=== PATIENT | male | born 1975 | race African-American/Black ===

== ENCOUNTER 2017-06-05 14:16 | Emergency (ER) | payer MEDICAID ==
[~2017-06-05] VITALS: Ht 167.6 cm; Wt 63.5 kg
--- NOTE | 2017-06-05 14:16 | NUR ---
Patient is AOX4, brought in by TRA with complains of severe abdominal pains, started about 30 minutes prior to arrival to ER. Per patient, he said that he drank 2 bottles of beer before the abdominal pains started.
--- NOTE | 2017-06-05 14:22 | NUR ---
After noticing a fresh puncture site at left antecubital area, patient admits to coming from another hospital but can not recall the hospital's name at this time 2/2 abdominal pains.
[2017-06-05] MEDS ORDERED: MAG HYDROX/AL HYDROX/SIMETH 30 ML LIQUID UDC PO ONE (14:30)
[2017-06-05] MEDS ORDERED: IV NORMAL SALINE 1000 ML BAG IV ONE (14:30)
[2017-06-05] MEDS ORDERED: HALOPERIDOL LACTATE 5 MG/1 ML VIAL IV ONE (14:45)
--- NOTE | 2017-06-05 14:53 | NUR ---
PATIENT C/O ITCHINESS TO BOTH ARMS, NO RASHES SEEN, LUNGS CLEAR CTA BILATERALLY, MD NOTIFIED
[2017-06-05] MEDS ORDERED: HALOPERIDOL LACTATE 5 MG/1 ML VIAL ONE (14:58)
[2017-06-05] MEDS ORDERED: MAG HYDROX/AL HYDROX/SIMETH 30 ML LIQUID UDC ONE (14:58)
[2017-06-05] MEDS ORDERED: diphenhydrAMINE 25 MG CAP PO ONE ×2 (15:00→15:11)
[2017-06-05 15:01] LABS: BASOPHILS % (AUTO) 0.3 % (0.0-2.0); HEMATOCRIT 39.2 % (40-50); HEMOGLOBIN 12.4 G/DL (14.0-18.0); LYMPHOCYTES # (AUTO) 1.1 K/UL (0.8-4.8); LYMPHOCYTES % (AUTO) 28.1 % (20.5-51.5); MEAN CORPUSCULAR HEMOGLOBIN 24.5 UUG (27.0-31.0); MEAN CORPUSCULAR HGB CONC 32 g/dL (32.0-37.0); MEAN CORPUSCULAR VOLUME 77.5 FL (82.0-92.0); MONOCYTES # (AUTO) 0.4 K/UL (0.1-1.30); MONOCYTES % (AUTO) 9.1 % (0.0-11.0); NEUTROPHILS # (AUTO) 2.6 K/UL (1.8-8.9); NEUTROPHILS % (AUTO) 61.5 % (38.5-71.5); PLATELET COUNT (AUTO) 205 K/UL (150-450); RED BLOOD CELL COUNT(AUTO) 5.05 MIL/UL (4.7-6.1); WHITE BLOOD COUNT (AUTO) 4.1 K/UL (4.0-11.2)
--- NOTE | 2017-06-05 15:01 | NUR ---
Patient is resting comfortably on gurney with eyes closed, denies itchiness at this time, no facial grimacing or abdominal guarding seen, pending results and disposition
[2017-06-05 15:04] LABS: CREATININE 0.9 mg/dL (0.6-1.3); POTASSIUM 3.5 mmol/L (3.5-5.1)
[2017-06-05 15:17] LABS: BILIRUBIN,DIRECT 0.1 mg/dL (0.0-0.2); BILIRUBIN,TOTAL 0.5 mg/dL (0.2-1.0); TOTAL PROTEIN, SERUM 7.4 g/dL (6.4-8.2)
[2017-06-05] MEDS ORDERED: LEVETIRACETAM 750 MG (15:40)
[2017-06-05] MEDS ORDERED: LEVE750T4 PO (16:06)
[2017-06-05] MEDS ORDERED: IV NS 1000 ML 1,000 ML IV ONE (16:15)
--- NOTE | 2017-06-05 16:46 | NUR ---
Patient is wide awake and wants something to eat, MD notified. Patient is not NPO now per MD. Patient denies abdominal pains at this time.
--- NOTE | 2017-06-05 17:06 | NUR ---
Patient is eating dinner tray with good appetite and denies any abdominal discomfort at this time.
--- NOTE | 2017-06-05 18:10 | NUR ---
IV removed. Catheter intact and site benign. Pressure and 4x4 gauze applied to site. No bleeding noted. Patient discharged to home in stable conditon. Written and verbal after care instructions given to patient. Patient verbalizes understanding of instructions.
--- NOTE | 2017-06-05 18:12 | NUR ---
Patient is AOx4, pt refused to sign discharge papers. Patient ambulated with brisk steady gait.
== END 2017-06-05 18:16 | disposition home or self-care (01) ==
LOC: ER 14:18
DX: G89.29 Other chronic pain (principal); R10.9 Unspecified abdominal pain; Z90.49 Acquired absence of other specified parts of digestive tract; Z88.6 Allergy status to analgesic agent
CPT/HCPCS: 36415; 74020; 83605; 83615; 83690; 85025; A4663; J1630; J7030; Q0163

== ENCOUNTER 2017-07-17 15:09 | Emergency (ER) | payer MEDICAID ==
[~2017-07-17] VITALS: Ht 175.3 cm; Wt 79.4 kg
[~2017-07-17 15:09] MED LIST: LEVE750T4 PO; LEVETIRACETAM 750 MG
[2017-07-17] MEDS ORDERED: HYDROCO/APAP TAB 5-325MG (15:27)
[2017-07-17] MEDS ORDERED: diphenhydrAMINE 50 MG/1 ML VIAL IV ONE (15:45)
[2017-07-17 15:52] LABS: BASOPHILS # (AUTO) 0.1 K/uL (0.0-8.0); BASOPHILS % (AUTO) 1.6 % (0.0-2.0); EOSINOPHILS # (AUTO) 0.1 K/uL (0.0-0.7); EOSINOPHILS % (AUTO) 1.5 % (0.0-7.0); HEMATOCRIT 37.9 % (40-50); HEMOGLOBIN 11.9 G/DL (14.0-18.0); LYMPHOCYTES # (AUTO) 1.4 K/UL (0.8-4.8); MEAN CORPUSCULAR HEMOGLOBIN 24.6 UUG (27.0-31.0); MEAN CORPUSCULAR HGB CONC 32 g/dL (32.0-37.0); MONOCYTES # (AUTO) 0.4 K/UL (0.1-1.30); MONOCYTES % (AUTO) 7.2 % (0.0-11.0); NEUTROPHILS # (AUTO) 3.3 K/UL (1.8-8.9); NEUTROPHILS % (AUTO) 62.7 % (38.5-71.5); PLATELET COUNT (AUTO) 234 K/UL (150-450); RED BLOOD CELL COUNT(AUTO) 4.86 MIL/UL (4.7-6.1); WHITE BLOOD COUNT (AUTO) 5.3 K/UL (4.0-11.2)
[2017-07-17 16:01] LABS: POTASSIUM 3.6 mmol/L (3.5-5.1)
[2017-07-17] MEDS ORDERED: diphenhydrAMINE 50 MG/1 ML VIAL ONE (16:03)
[2017-07-17 16:07] LABS: BILIRUBIN,DIRECT 0.1 mg/dL (0.0-0.2); BILIRUBIN,TOTAL 0.2 mg/dL (0.2-1.0); TOTAL PROTEIN, SERUM 7.2 g/dL (6.4-8.2)
[2017-07-17 16:08] LABS: *AMPHETAMINE, URINE NEGATIVE (NEGATIVE); *BARBITURATE, URINE POSITIVE (NEGATIVE); *CANNABINOID, URINE NEGATIVE (NEGATIVE); *COCCAINE, URINE NEGATIVE (NEGATIVE); *OPIATE, URINE NEGATIVE (NEGATIVE); *PHENCYCLIDINE SCREEN,URINE NEGATIVE (NEGATIVE)
[2017-07-17 16:14] LABS: *BILIRUBIN,URIN NEGATIVE (NEGATIVE); *BLOOD, URINE NEGATIVE (NEGATIVE); *CLARITY,URINE CLEAR (CLEAR); *COLOR,URINE LIGHT YELLOW (YELLOW); *KETONES,URINE NEGATIVE (NEGATIVE); *PROTEIN,URINE NEGATIVE (NEGATIVE); *UROBILINOGEN,URINE 0.2 E.U./dl (NORMAL); LEUKOCYTE ESTERASE ,URINE NEGATIVE (NEGATIVE); NITRITE, URINE NEGATIVE (NEGATIVE); UGLUCOSE NEGATIVE (NEGATIVE)
[2017-07-17 16:27] LABS: BACTERIA,URINE NONE SEEN /HPF (NONE SEEN); RBC,URINE 0-3 /HPF (0-3); SQUAMOUS EPITHELIAL CELL,UR NONE SEEN /HPF (NONE SEEN); WBC,URINE 0-3 /HPF (0-3)
[2017-07-17] MEDS ORDERED: NORMAL SALINE FLUSH 10 ML DISP.SYRIN ONE (16:53)
[2017-07-17] MEDS ORDERED: IV NORMAL SALINE 250 ML IV ONE (16:53)
[2017-07-17] MEDS ORDERED: IOHEXOL 300MG/ML 100 ML INFUS..BTL ONE (16:53)
--- NOTE | 2017-07-17 17:19 | NUR ---
pt back from ct scan. pt responding only to painful dtimuli. pt non verbal
--- NOTE | 2017-07-17 18:00 | NUR ---
pt awake now, walking in steady gait.
--- NOTE | 2017-07-17 18:24 | NUR ---
Patient discharged to home in stable conditon. Written and verbal after care instructions given. Patient verbalizes understanding of instructions.pt waks in steady gait, denies any pain or nausea t this time. pt not driving.
[2017-07-17 18:28] VITALS: BP 117/67
[2017-07-17] MEDS ORDERED: LEVETIRACETAM 250 MG TABLET PO ONE (18:30)
[2017-07-17] MEDS ORDERED: LEVETIRACETAM 250 MG TABLET ONE (18:37)
== END 2017-07-17 18:30 | disposition home or self-care (01) ==
LOC: ER 15:10
DX: M54.2 Cervicalgia (principal); R07.9 Chest pain, unspecified; F10.129 Alcohol abuse with intoxication, unspecified; F17.210 Nicotine dependence, cigarettes, uncomplicated; V89.2XXA Person injured in unspecified motor-vehicle accident, traffic, initial encounter; Y93.89 Activity, other specified; Y92.410 Unspecified street and highway as the place of occurrence of the external cause; Y99.9 Unspecified external cause status
CPT/HCPCS: 36415; 70450; 71010; 71260; 72125; 74177; 80048; 80076; 80307; 81001; 84484; 85025; 85379; 85730; 86850; 86900; 86901; 93005; 96374; 99285; A4663; G0480; J1200; J3490; J7050; Q9967; 70030-TC

== ENCOUNTER 2017-07-22 12:13 | Emergency (ER) | payer MEDICAID ==
[~2017-07-22] VITALS: Ht 167.6 cm; Wt 63.5 kg
[~2017-07-22 12:13] MED LIST changes: +HYDROCO/APAP TAB 5-325MG
--- NOTE | 2017-07-22 12:40 | NUR ---
PT IS IN ROOM #2A. DR MARVIN EVALUATED THE PT.
--- NOTE | 2017-07-22 13:07 | NUR ---
PT REFUSED X-RAY. DR MARVIN NOTIFIED. PT ELOPED. DR MARVIN WAS NOTIFIED.
== END 2017-07-22 13:10 | disposition left against medical advice (07) ==
LOC: ER 12:21
DX: M54.9 Dorsalgia, unspecified (principal); M79.605 Pain in left leg; Z59.0 Homelessness; F17.200 Nicotine dependence, unspecified, uncomplicated; Z88.6 Allergy status to analgesic agent; Z90.49 Acquired absence of other specified parts of digestive tract; V49.9XXA Car occupant (driver) (passenger) injured in unspecified traffic accident, initial encounter; Y93.89 Activity, other specified; Y92.413 State road as the place of occurrence of the external cause; Y99.8 Other external cause status
CPT/HCPCS: 72100; 99284; A4663

== ENCOUNTER 2017-08-08 18:48 | Emergency (ER) | payer MEDICAID ==
--- NOTE | 2017-08-08 19:40 | NUR ---
WENT TO WAITING ROOM ON 2 SEPARATE OCCASION TO ATTEMPT TO TRAIGE PATIENT. PATIENT REFUSING TO BE TRAIGE AT THIS TIME STATING "LET ME SLEEP." PATIENT WITH NO DISTRESS NOTED
--- NOTE | 2017-08-08 19:50 | NUR ---
HOSPITAL SECRUITY INTO CHECK PATIENT. PATIENT WOKE UP WALKING AROUND WAITING ROOM SPEAKING ON CELL PHONE WITH . PATIENT WITH NO DISTRESS NOTED
--- NOTE | 2017-08-08 20:04 | NUR ---
PATIENT WALKED OUT OF ER WITH NO DISTRESS NOTED
== END 2017-08-08 20:06 | disposition left against medical advice (07) ==
LOC: ER 18:49
DX: Z53.21 Procedure and treatment not carried out due to patient leaving prior to being seen by health care provider (principal)

== ENCOUNTER 2017-08-21 03:39 | Emergency (ER) | payer MEDICAID ==
[~2017-08-21] VITALS: Ht 167.6 cm; Wt 65.8 kg
[2017-08-21] MEDS ORDERED: ACETAMINOPHEN ES 500 MG TABLET PO ONE (04:30)
--- NOTE | 2017-08-21 04:31 | NUR ---
Patient was asked to provide a urine specimen at which time he stated "I don't want nothing to do with you all" and left the hospital. Patient eloped from facility. ER physician notified.
[2017-08-21] MEDS ORDERED: ACETAMINOPHEN ES 500 MG TABLET ONE (04:42)
== END 2017-08-21 04:33 | disposition left against medical advice (07) ==
LOC: ER 03:40
DX: R10.9 Unspecified abdominal pain (principal); F10.129 Alcohol abuse with intoxication, unspecified; Z59.0 Homelessness; Z76.5 Malingerer [conscious simulation]; Z88.6 Allergy status to analgesic agent; Z90.49 Acquired absence of other specified parts of digestive tract; F17.200 Nicotine dependence, unspecified, uncomplicated
CPT/HCPCS: 99281; A4663

== ENCOUNTER 2017-09-12 18:03 | Emergency (ER) | payer MEDICAID ==
[~2017-09-12] VITALS: Ht 162.6 cm; Wt 65.8 kg
--- NOTE | 2017-09-12 20:36 | NUR ---
PATIENT AWAKE, AL;ERT AND ORIENTED AT THIS TIME. DR. NEGRETE AT BEDSIDE FOR MSE.
--- NOTE | 2017-09-12 21:00 | NUR ---
PATIENT WALKED OUT OF ER. STATES "I FEEL FINE". PATIENT IS ALERT AND ORIENTED, LEFT WITH STEADY GAIT
--- NOTE | 2017-09-12 21:01 | NUR ---
PATIENT DID NOT WANT TO WAIT FOR DC INSTRUCTIONS.
== END 2017-09-12 21:01 | disposition left against medical advice (07) ==
LOC: ER 18:04
DX: M79.604 Pain in right leg (principal); Z59.0 Homelessness; Z88.6 Allergy status to analgesic agent; Z90.49 Acquired absence of other specified parts of digestive tract
CPT/HCPCS: A4663

== ENCOUNTER 2017-09-27 21:43 | Emergency (ER) | payer MEDICAID ==
[~2017-09-27] VITALS: Ht 167.6 cm; Wt 59.0 kg
--- NOTE | 2017-09-28 04:03 | NUR ---
Pt was in hospital for sz.s about 1 1/2 weeks ago, apparently had an IO drilled into right tibia, c/o severe 8/10 pain, pain shoots to foot and up through right arm. Pt denies CP, SOB, dizziness, n/v, no other complaints, minor distress noted. Bed padded for safety.
--- NOTE | 2017-09-28 05:03 | NUR ---
Gave pt d/c instructions, verbalized understanding.
== END 2017-09-28 05:05 | disposition home or self-care (01) ==
LOC: ER 21:43
DX: M25.561 Pain in right knee (principal); Z59.0 Homelessness; R56.9 Unspecified convulsions; Z88.6 Allergy status to analgesic agent; F17.200 Nicotine dependence, unspecified, uncomplicated; Z90.49 Acquired absence of other specified parts of digestive tract
CPT/HCPCS: 73564; 99284; A4663

== ENCOUNTER 2017-11-01 00:23 | Emergency (ER) | payer MEDICAID ==
[~2017-11-01] VITALS: Ht 165.1 cm; Wt 58.3 kg
--- NOTE | 2017-11-01 00:30 | NUR ---
Pt found down in the hallway by hospital personnel, brought into ER in Wheel chair. Pt c/o SOB and left sided sharp CP. Pt denies dizziness, n/v, no other complaints, minor distress noted. Pt placed on monitor, EKG -- given to .
[2017-11-01 00:55] LABS: BASOPHILS # (AUTO) 0.1 K/uL (0.0-8.0); BASOPHILS % (AUTO) 2.5 % (0.0-2.0); EOSINOPHILS % (AUTO) 0.6 % (0.0-7.0); HEMATOCRIT 37.2 % (36.7-47.1); HEMOGLOBIN 11.8 g/dL (12.5-16.3); LYMPHOCYTES # (AUTO) 1.6 K/uL (20.0-40.0); LYMPHOCYTES % (AUTO) 37.5 % (20.5-51.5); MEAN CORPUSCULAR HEMOGLOBIN 23.2 uug (23.8-33.4); MEAN CORPUSCULAR HGB CONC 32 g/dL (32.5-36.3); MEAN CORPUSCULAR VOLUME 72.7 fL (73.0-96.2); MONOCYTES # (AUTO) 0.3 K/uL (2.0-10.0); MONOCYTES % (AUTO) 6.5 % (0.0-11.0); NEUTROPHILS # (AUTO) 2.2 K/uL (1.8-8.9); NEUTROPHILS % (AUTO) 52.9 % (38.5-71.5); PLATELET COUNT (AUTO) 329 K/uL (152-348); RED BLOOD CELL COUNT(AUTO) 5.11 MIL/uL (4.06-5.63); WHITE BLOOD COUNT (AUTO) 4.2 K/uL (3.6-10.2)
[2017-11-01] MEDS: ONDANSETRON 4 MG/2 ML VIAL IV ONE (01:04)
[2017-11-01] MEDS: ENOXAPARIN SODIUM 60 MG/0.6 ML DISP.SYRIN SQ ONE (01:12)
[2017-11-01 01:13] LABS: ALANINE AMINOTRANSFERASE 32 U/L (16-63); ALKALINE PHOSPHATASE 54 U/L (50-136); ASPARTATE AMINOTRANSFERASE 38 U/L (15-37); BILIRUBIN,DIRECT < 0.1 mg/dL (0.0-0.2); BILIRUBIN,TOTAL 0.3 mg/dL (0.2-1.0); CARBON DIOXIDE 25 mmol/L (21-32); CHLORIDE 104 mmol/L (98-107); CREATININE 0.9 mg/dL (0.6-1.3); GLUCOSE 102 mg/dL (74-106); POTASSIUM 4.7 mmol/L (3.5-5.1); TOTAL PROTEIN, SERUM 8.8 g/dL (6.4-8.2); UREA NITROGEN, BLOOD 8 mg/dL (7-18)
[2017-11-01] MEDS ORDERED: ONDANSETRON 4 MG/2 ML VIAL ONE (01:14)
[2017-11-01] MEDS ORDERED: IOHEXOL 350 100 ML INFUS..BTL ONE ×2 (01:14→02:13)
[2017-11-01] MEDS ORDERED: IV NORMAL SALINE 250 ML IV ONE (01:14)
[2017-11-01] MEDS ORDERED: ENOXAPARIN SODIUM 60 MG/0.6 ML DISP.SYRIN SQ ONE (01:22)
[2017-11-01] MEDS: diphenhydrAMINE 25 MG CAP PO ONE (01:30)
[2017-11-01] MEDS: IV NORMAL SALINE 1000 ML BAG IV ONE ×2 (01:33→03:50)
[2017-11-01] MEDS ORDERED: diphenhydrAMINE 25 MG CAP PO ONE (01:40)
[2017-11-01] MEDS: diphenhydrAMINE 50 MG/1 ML VIAL IV ONE (01:47)
[2017-11-01] MEDS: LORAZEPAM 2 MG/1 ML VIAL IV ONE (01:47)
--- NOTE | 2017-11-01 01:48 | NUR ---
Pt c/o severe itching after contrast injection in CT. notified
[2017-11-01] MEDS ORDERED: diphenhydrAMINE 50 MG/1 ML VIAL ONE (02:00)
[2017-11-01] MEDS ORDERED: LORAZEPAM 2 MG/1 ML VIAL ONE (02:01)
--- NOTE | 2017-11-01 02:45 | NUR ---
Primary IV infiltrated during 2nd CT attempt, IV removed intact, bandaged, warm pack applied to site.
[2017-11-01] MEDS: PANTOPRAZOLE SODIUM 40 MG VIAL IV ONE (04:01)
[2017-11-01] MEDS ORDERED: PANTOPRAZOLE SODIUM 40 MG VIAL ONE (04:17)
--- NOTE | 2017-11-01 04:35 | NUR ---
Gave pt sandwich. No complaints, no distress noted.
--- NOTE | 2017-11-01 05:35 | NUR ---
Pt resting in bed w/eyes closed, no complaints, no distress noted.
--- NOTE | 2017-11-01 06:25 | NUR ---
Pt does not yet have a steady gait. informed.
--- NOTE | 2017-11-01 07:42 | NUR ---
PATIENT IS AWAKE, ALERT, ORIENTED X4 IN NO DISTRESS. HE WALKED TO THE BATHROOM IN STEADY GAIT AND URINATED. DENIES PAIN, DENIES DIZZINESS. STATES HE WANTS TO GO HOME. DENIES BEING HOMELESS. STATES HE WILL TAKE THE BUS. STATES HE UNDERSTANDS THAT HE SHOULD NOT DRIVE WHEN INTOXICATED. DC, RX AND FOLLOW UP INSTRUCTIONS GIVEN AND EXPLAINED TO PATIENT WHO STATES HE UNDERSTAND ALL INSTRUCTIONS. STATES HE HAS A AND SHE IS WAITING FOR HIM. HE HAD A WALLET, KEYS AND SEVERAL PRESCRIPTION BOTTLES WITH HIM WHEN HE LEFT.
[2017-11-01 07:46] VITALS: BP 119/74
== END 2017-11-01 07:47 | disposition home or self-care (01) ==
LOC: ER 00:23
DX: F10.129 Alcohol abuse with intoxication, unspecified (principal); G40.909 Epilepsy, unspecified, not intractable, without status epilepticus; Z59.0 Homelessness; Z88.6 Allergy status to analgesic agent; F17.200 Nicotine dependence, unspecified, uncomplicated
CPT/HCPCS: 36415; 70030-TC; 71045; 71275; 85025; 85730; 86850; 86900; 86901; 93005; A4663; C9113; G0480; J1200; J1650; J2060; J2405; J7030; J7050; Q0163; Q9967

== ENCOUNTER 2018-03-17 20:27 | Emergency (ER) | payer MEDICAID ==
[~2018-03-17] VITALS: Ht 165.1 cm; Wt 58.1 kg
--- NOTE | 2018-03-17 20:35 | NUR ---
DR YON SANCHEZ MD AT BEDSIDE FOR MSE.
[2018-03-17] MEDS ORDERED: PANTOPRAZOLE SODIUM 40 MG VIAL IV ONE (20:45)
[2018-03-17] MEDS ORDERED: IV NORMAL SALINE 1000 ML BAG IV ONE (20:45)
[2018-03-17] MEDS ORDERED: PANTOPRAZOLE SODIUM 40 MG VIAL ONE (20:51)
--- NOTE | 2018-03-17 20:56 | NUR ---
PT IN BED URING URINAL INDEPENDENTLY.
[2018-03-17] MEDS ORDERED: ONDANSETRON IV *ER 4 MG/2 ML VIAL IV ONE (21:15)
[2018-03-17] MEDS ORDERED: diphenhydrAMINE 50 MG/1 ML VIAL ONE (21:20)
[2018-03-17] MEDS ORDERED: ONDANSETRON 4 MG/2 ML VIAL ONE (21:20)
--- NOTE | 2018-03-17 21:25 | NUR ---
PT TAKEN TO CT VIA VADIM. NO DISTRESS NOTED.
[2018-03-17 21:27] LABS: BASOPHILS % (AUTO) 0.5 % (0.0-2.0); EOSINOPHILS % (AUTO) 0.8 % (0.0-7.0); HEMATOCRIT 33.2 % (36.7-47.1); HEMOGLOBIN 10.6 g/dL (12.5-16.3); LYMPHOCYTES # (AUTO) 1.7 K/uL (20.0-40.0); LYMPHOCYTES % (AUTO) 27.3 % (20.5-51.5); MEAN CORPUSCULAR HGB CONC 32 g/dL (32.5-36.3); MEAN CORPUSCULAR VOLUME 72.4 fL (73.0-96.2); MONOCYTES # (AUTO) 0.2 K/uL (2.0-10.0); MONOCYTES % (AUTO) 3.7 % (0.0-11.0); NEUTROPHILS # (AUTO) 4.2 K/uL (1.8-8.9); NEUTROPHILS % (AUTO) 67.7 % (38.5-71.5); PLATELET COUNT (AUTO) 187 K/uL (152-348); RED BLOOD CELL COUNT(AUTO) 4.59 MIL/uL (4.06-5.63); WHITE BLOOD COUNT (AUTO) 6.2 K/uL (3.6-10.2)
[2018-03-17] MEDS ORDERED: diphenhydrAMINE 50 MG/1 ML VIAL IV ONE (21:30)
[2018-03-17 21:34] LABS: CREATININE 0.8 mg/dL (0.6-1.3); POTASSIUM 3.5 mmol/L (3.5-5.1)
--- NOTE | 2018-03-17 21:36 | NUR ---
PT BACK IN ROOM FROM CT. NO ACUTE EVENTS.
--- NOTE | 2018-03-17 21:40 | NUR ---
PT RESTING IN BED W/ EYES CLOSED. NO ACUTE DISTRESS NOTED.
[2018-03-17 21:41] LABS: *BILIRUBIN,URIN NEGATIVE (NEGATIVE); *BLOOD, URINE NEGATIVE (NEGATIVE); *CLARITY,URINE CLEAR (CLEAR); *COLOR,URINE YELLOW (YELLOW); *KETONES,URINE NEGATIVE (NEGATIVE); *PROTEIN,URINE NEGATIVE (NEGATIVE); *UROBILINOGEN,URINE 0.2 E.U./dl (NORMAL); LEUKOCYTE ESTERASE ,URINE NEGATIVE (NEGATIVE); NITRITE, URINE NEGATIVE (NEGATIVE); UGLUCOSE NEGATIVE (NEGATIVE)
[2018-03-17 21:49] LABS: BACTERIA,URINE NONE SEEN /HPF (NONE SEEN); RBC,URINE 0-3 /HPF (0-3); SQUAMOUS EPITHELIAL CELL,UR NONE SEEN /HPF (NONE SEEN); WBC,URINE 0-3 /HPF (0-3)
[2018-03-17 21:50] LABS: BILIRUBIN,DIRECT 0.1 mg/dL (0.0-0.2); BILIRUBIN,TOTAL 0.4 mg/dL (0.2-1.0); TOTAL PROTEIN, SERUM 7.4 g/dL (6.4-8.2)
--- NOTE | 2018-03-17 23:35 | NUR ---
PT CONTINUES TO REST W/ EYES CLOSED. NO DISTRESS NOTED.
--- NOTE | 2018-03-18 03:42 | NUR ---
PT CONTINUES TO REST IN BED W/ EYES CLOSED. NO DISTRESS NOTED
--- NOTE | 2018-03-18 04:14 | NUR ---
PT AWOKE, AND STATES HE FEELS MUCH BETTER AND "JUST WANTS TO GO". PT FEELS ADEQUATE FOR DISCHARGE.
[2018-03-18 04:19] VITALS: BP 124/78
--- NOTE | 2018-03-18 04:19 | NUR ---
Patient discharged to home in stable conditon. Written and verbal after care instructions given. Patient verbalizes understanding of instructions. IV removed w/ catheter intact. Pressure aplied, no bleeding noted at site. Pt ambulated from ER w/ steady gait. Pt took all personal belongings. No distress noted.
== END 2018-03-18 04:20 | disposition home or self-care (01) ==
LOC: ER 20:29
DX: F10.129 Alcohol abuse with intoxication, unspecified (principal); F17.210 Nicotine dependence, cigarettes, uncomplicated; Z90.49 Acquired absence of other specified parts of digestive tract; Z88.6 Allergy status to analgesic agent; Z88.8 Allergy status to other drugs, medicaments and biological substances; Z59.0 Homelessness
CPT/HCPCS: 36415; 71045; 74176; 80048; 80076; 81001; 82140; 83690; 84484; 85025; 85730; 93005; 96374; 96375; 99285; A4663; C9113; G0480; J1200; J2405; J7030; 70030-TC; 87086

== ENCOUNTER 2021-04-17 04:08 | Emergency (ER) | payer MEDICAID ==
[~2021-04-17] VITALS: Ht 165.1 cm; Wt 74.8 kg
--- NOTE | 2021-04-17 04:35 | NUR ---
Pt walked in saying he was having an allergic reaction, gesturing nonverbally that he was itchy and sob. He is 99% on RA, no signs of distress. No cough, wheezing, or other symptoms.
[2021-04-17] MEDS ORDERED: diphenhydrAMINE 50 MG/1 ML VIAL IV ONE (05:30)
[2021-04-17] MEDS ORDERED: FAMOTIDINE. 20 MG/2 ML VIAL IV ONE ×2 (05:30→05:38)
[2021-04-17] MEDS ORDERED: methylPREDNISolone SOD SUCC 125 MG/2 ML VIAL IV ONE (05:30)
--- NOTE | 2021-04-17 05:30 | NUR ---
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 Pt. has no signs of distress. Itchiness has improved. Pt. is able to breathe without distress. 100% on room air.
[2021-04-17] MEDS ORDERED: methylPREDNISolone SOD SUCC 125 MG/2 ML VIAL ONE (05:38)
[2021-04-17] MEDS ORDERED: diphenhydrAMINE 50 MG/1 ML VIAL ONE (05:38)
[2021-04-17 05:44] LABS: HEMATOCRIT 36.8 % (36.7-47.1); MEAN CORPUSCULAR HEMOGLOBIN 24.9 uug (23.8-33.4); MEAN CORPUSCULAR VOLUME 78.2 fL (73.0-96.2); PLATELET COUNT (AUTO) 229 K/uL (152-348)
--- NOTE | 2021-04-17 05:45 | NUR ---
Received call from patient's , Pricila, , stated that they have a big family emergency and really needs to talk to her , been calling all the hospitals in the area trying to find him, pt not answering his cellphone after repeated calls.
[2021-04-17 05:52] LABS: CARBON DIOXIDE 24 mmol/L (21-32); CHLORIDE 105 mmol/L (98-107); CREATININE 0.8 mg/dL (0.6-1.3); GLUCOSE 100 mg/dL (74-106); POTASSIUM 3.6 mmol/L (3.5-5.1); UREA NITROGEN, BLOOD 10 mg/dL (7-18)
[2021-04-17 05:57] LABS: ETHANOL 323 MG/DL (0-0)
[2021-04-17 05:58] LABS: ACETAMINOPHEN < 2.0 ug/mL (10-30); ALANINE AMINOTRANSFERASE 32 U/L (16-63); ALKALINE PHOSPHATASE 63 U/L (50-136); ASPARTATE AMINOTRANSFERASE 32 U/L (15-37); BILIRUBIN,DIRECT 0.1 mg/dL (0.0-0.2); BILIRUBIN,TOTAL 0.5 mg/dL (0.2-1.0); TOTAL PROTEIN, SERUM 7.6 g/dL (6.4-8.2)
[2021-04-17 06:06] LABS: THYROID STIMULATING HORMONE 0.634 mIU/mL (0.358-3.740)
--- NOTE | 2021-04-17 06:09 | NUR ---
Patient resting on bed, appears lethargic, responds to noxious stimuli.
[2021-04-17] MEDS ORDERED: IV NORMAL SALINE 500 ML BAG IV ONE (06:45)
[2021-04-17] MEDS ORDERED: ONDA4TAB5 PO (07:59)
--- NOTE | 2021-04-17 08:20 | NUR ---
Removed IV intact, site okay, bandaged. Gave pt's RX and d/c instructions, verbalized understanding. Assisted pt to car w/ driving.
[2021-04-17 08:41] VITALS: BP 148/109
== END 2021-04-17 08:35 | disposition home or self-care (01) ==
LOC: ER 04:10
DX: T51.0X1A Toxic effect of ethanol, accidental (unintentional), initial encounter (principal); G92 Toxic encephalopathy; Y92.89 Other specified places as the place of occurrence of the external cause; F10.229 Alcohol dependence with intoxication, unspecified; Y90.8 Blood alcohol level of 240 mg/100 ml or more; Z87.892 Personal history of anaphylaxis; R94.31 Abnormal electrocardiogram [ECG] [EKG]; Z88.6 Allergy status to analgesic agent; F17.200 Nicotine dependence, unspecified, uncomplicated; G40.909 Epilepsy, unspecified, not intractable, without status epilepticus; I45.10 Unspecified right bundle-branch block
CPT/HCPCS: 36415; 70450; 71045; 80048; 80076; 80299; 80320; 82140; 84443; 84484; 85025; 93005; 96361; 96374; 96375; 99285; J1200; J2930; J3490; 70030-TC; A4663; G0480; J7030

== ENCOUNTER 2021-05-03 18:03 | Emergency (ER) | payer MEDICAID ==
[~2021-05-03] VITALS: Ht 167.6 cm; Wt 57.2 kg
[~2021-05-03 18:03] MED LIST changes: -HYDROCO/APAP TAB 5-325MG; -LEVE750T4 PO; -LEVETIRACETAM 750 MG; +ONDA4TAB5 PO
[2021-05-03] MEDS ORDERED: IV NORMAL SALINE 1000 ML BAG IV ONE (18:15)
[2021-05-03] MEDS ORDERED: methylPREDNISolone SOD SUCC 125 MG/2 ML VIAL IV ONE (18:15)
[2021-05-03] MEDS ORDERED: diphenhydrAMINE 50 MG/1 ML VIAL IV ONE (18:15)
[2021-05-03] MEDS ORDERED: FAMOTIDINE. 20 MG/2 ML VIAL IV ONE ×2 (18:15→19:33)
[2021-05-03] MEDS ORDERED: methylPREDNISolone SOD SUCC 125 MG/2 ML VIAL ONE (18:26)
[2021-05-03] MEDS ORDERED: diphenhydrAMINE 50 MG/1 ML VIAL ONE (18:26)
[2021-05-03 18:51] LABS: HEMATOCRIT 43.4 % (36.7-47.1); MEAN CORPUSCULAR VOLUME 80.5 fL (73.0-96.2); PLATELET COUNT (AUTO) 223 K/uL (152-348)
[2021-05-03] MEDS ORDERED: CHLORDIAZEPOXIDE HCL 25 MG CAPSULE PO ONE (19:00)
[2021-05-03] MEDS ORDERED: THIAMINE HCL 100 MG TABLET PO ONE (19:00)
[2021-05-03] MEDS ORDERED: OXYCODONE/APAP 5-325 MG TABLET PO ONE (19:00)
[2021-05-03] MEDS ORDERED: CLOPIDOGREL 75 MG TABLET PO ONE (19:30)
[2021-05-03 19:33] LABS: CREATININE 1.1 mg/dL (0.6-1.3); POTASSIUM 3.7 mmol/L (3.5-5.1)
[2021-05-03] MEDS ORDERED: OXYCODONE/APAP 5-325 MG TABLET ONE (19:33)
[2021-05-03] MEDS ORDERED: THIAMINE HCL 100 MG TABLET ONE (19:33)
[2021-05-03 19:39] LABS: BILIRUBIN,DIRECT 0.1 mg/dL (0.0-0.2); BILIRUBIN,TOTAL 0.3 mg/dL (0.2-1.0); TOTAL PROTEIN, SERUM 7.4 g/dL (6.4-8.2)
[2021-05-03] MEDS ORDERED: LORAZEPAM 0.5 MG TABLET PO ONE (19:45)
[2021-05-03] MEDS ORDERED: IV NS 1000 ML 1,000 ML IV ONE (19:45)
--- NOTE | 2021-05-03 20:57 | NUR ---
Patient's is here to pick patient up and take patient home. Patient A/Ox4. Speech is clear, and is able to ambulate with extreme steady gait despite alcohol level. Patient does not wish to proceed with medical care recommended by Dr. Villanueva. Patient given information related to possible complications, up to and including , which could occur as a result of leaving the hospital at this time. Patient verbalizes understanding of risks involved due to leaving against medical advice. Patient has signed AMA form.
[2021-05-03] MEDS ORDERED: CHLO25CA22 PO (21:01)
[2021-05-03 21:02] VITALS: BP 131/85
== END 2021-05-03 21:03 | disposition left against medical advice (07) ==
LOC: ER 18:05
DX: F10.229 Alcohol dependence with intoxication, unspecified (principal); Y90.8 Blood alcohol level of 240 mg/100 ml or more; R10.10 Upper abdominal pain, unspecified; R07.9 Chest pain, unspecified; I45.10 Unspecified right bundle-branch block; R00.0 Tachycardia, unspecified; T78.40XA Allergy, unspecified, initial encounter; X58.XXXA Exposure to other specified factors, initial encounter; G40.909 Epilepsy, unspecified, not intractable, without status epilepticus; F32.9 Major depressive disorder, single episode, unspecified; Z88.6 Allergy status to analgesic agent; Z91.010 Allergy to peanuts
CPT/HCPCS: 36415; 71045; 80048; 80076; 80320; 83605; 83690; 84484; 85025; 85379; 85730; 93005; 96361; 96372; 96374; 99285; J1200; J2930; J3490; 70030-TC; A4663; G0480; J7030

== ENCOUNTER 2021-05-17 03:46 | Inpatient (IN) | payer MEDICAID ==
[~2021-05-17] VITALS: Ht 167.6 cm; Wt 65.8 kg
[~2021-05-17 03:46] MED LIST changes: +CHLO25CA22 PO
--- NOTE | 2021-05-17 03:55 | NUR ---
PT AMBULATED TO ER WITH C/O SHARP ABDOMINAL PAIN X2 DAYS WITH RECTAL BLEEDING. A/O X3, NO SOB OR LABORED BREATHING, AFEBRILE. DENIES CP/PRESSURE. NO N/V.
--- NOTE | 2021-05-17 03:58 | NUR ---
DR. BRISCOE AT BEDSIDE, MSE IN PROGRESS.
[2021-05-17] MEDS ORDERED: IV NORMAL SALINE 1000 ML BAG IV ONE ×2 (04:15→05:30)
[2021-05-17 04:29] LABS: HEMATOCRIT 35.5 % (36.7-47.1); MEAN CORPUSCULAR HEMOGLOBIN 25.4 uug (23.8-33.4); PLATELET COUNT (AUTO) 247 K/uL (152-348)
[2021-05-17] MEDS ORDERED: MORPHINE SULFATE 4 MG/1 ML DISP.SYRIN IV ONE (04:30)
[2021-05-17] MEDS ORDERED: MORPHINE SULFATE 4 MG/1 ML DISP.SYRIN ONE (04:32)
--- NOTE | 2021-05-17 04:32 | NUR ---
PT TAKEN DOWN FOR CT.
[2021-05-17 04:34] LABS: CARBON DIOXIDE 27 mmol/L (21-32); CHLORIDE 104 mmol/L (98-107); CREATININE 0.9 mg/dL (0.6-1.3); GLUCOSE 119 mg/dL (74-106); UREA NITROGEN, BLOOD 3 mg/dL (7-18)
[2021-05-17 04:39] LABS: ALANINE AMINOTRANSFERASE 60 U/L (16-63); ALKALINE PHOSPHATASE 80 U/L (50-136); ASPARTATE AMINOTRANSFERASE 37 U/L (15-37); BILIRUBIN,DIRECT 0.1 mg/dL (0.0-0.2); BILIRUBIN,TOTAL 0.3 mg/dL (0.2-1.0); LIPASE 214 U/L (73-393); TOTAL PROTEIN, SERUM 8.3 g/dL (6.4-8.2)
[2021-05-17] MEDS ORDERED: IV NORMAL SALINE 250 ML IV ONE (04:47)
[2021-05-17] MEDS ORDERED: IOHEXOL 300MG/ML 100 ML INFUS..BTL ONE (04:47)
[2021-05-17] MEDS ORDERED: SWABABLE VALVE TRANSFER SET EA MC ONE (04:47)
[2021-05-17 04:49] LABS: *BILIRUBIN,URIN NEGATIVE (NEGATIVE); *CLARITY,URINE CLEAR (CLEAR); *KETONES,URINE NEGATIVE (NEGATIVE); *UROBILINOGEN,URINE 0.2 E.U./dl (NORMAL); LEUKOCYTE ESTERASE ,URINE NEGATIVE (NEGATIVE); NITRITE, URINE NEGATIVE (NEGATIVE); PH,URINE 5.5 (5.0-8.0); UGLUCOSE NEGATIVE (NEGATIVE)
[2021-05-17 04:51] LABS: *BLOOD, URINE TRACE (NEGATIVE); *COLOR,URINE STRAW (YELLOW)
[2021-05-17 04:55] LABS: BACTERIA,URINE NONE SEEN /HPF (NONE SEEN); RBC,URINE 0-3 /HPF (0-3); SQUAMOUS EPITHELIAL CELL,UR FEW /HPF (NONE SEEN); WBC,URINE NONE SEEN /HPF (0-3)
[2021-05-17] MEDS ORDERED: VANCOMYCIN 1G/D5W 200 ML PIGGYBACK IV ONE (05:00)
[2021-05-17] MEDS ORDERED: methylPREDNISolone SOD SUCC 125 MG/2 ML VIAL IV ONE (05:00)
[2021-05-17] MEDS ORDERED: CEFTRIAXONE 1 G in IV DEXTROSE 5% 50 ML IV ONE (05:00)
[2021-05-17] MEDS ORDERED: diphenhydrAMINE 50 MG/1 ML VIAL IM ONE (05:00)
[2021-05-17] MEDS ORDERED: VANCOMYCIN IV 200 ML ONE (05:00)
[2021-05-17] MEDS ORDERED: diphenhydrAMINE 50 MG/1 ML VIAL ONE (05:01)
[2021-05-17] MEDS ORDERED: CEFTRIAXONE /D5W 50ML IVPB **ER PYXIS IV ONE (05:01)
[2021-05-17] MEDS ORDERED: methylPREDNISolone SOD SUCC 125 MG/2 ML VIAL ONE (05:06)
[2021-05-17] MEDS ORDERED: IV NORMAL SALINE 500 ML BAG IV ONE ×2 (05:30→07:30)
--- NOTE | 2021-05-17 06:50 | NUR ---
ASSISTED PT TO USE URINAL. CLEAR YELLOW URINE, NO FOUL ODOR.
[2021-05-17] MEDS ORDERED: DIAZEPAM 10 MG/2 ML DISP.SYRIN IV ONE ×2 (07:30→09:30)
--- NOTE | 2021-05-17 07:30 | NUR ---
CHAPERONED ER MD WITH RECTAL EXAM. PT SAYS THAT HE TAKES 6 BEERS EVERY DAY THE LAST ONE 12 HRS AGO. PT SAYS THAT HE WILL GO INTO WITHDRAWAL. ER MD ORDERD 5MG OF VALIUM.
[2021-05-17] MEDS ORDERED: DIAZEPAM 10 MG/2 ML DISP.SYRIN ONE ×2 (07:47→09:44)
--- NOTE | 2021-05-17 08:26 | NUR ---
breakfast provided for pt. pteating with good apetite.
[2021-05-17] MEDS ORDERED: PANTOPRAZOLE SODIUM IV 80 MG in IV DEXTROSE 5% 100 ML IV ONE (08:30)
[2021-05-17] MEDS ORDERED: PANTOPRAZOLE SODIUM 40 MG VIAL ONE (09:10)
[2021-05-17] MEDS ORDERED: HALOPERIDOL LACTATE 5 MG/1 ML VIAL IV ONE (09:30)
[2021-05-17] MEDS ORDERED: HALOPERIDOL LACTATE 5 MG/1 ML VIAL ONE (09:44)
--- NOTE | 2021-05-17 10:58 | NUR ---
ABHINAV CALLED FROM [facility], [facility] SENT PER REQUEST TO [phone]
--- NOTE | 2021-05-17 11:42 | NUR ---
[facility] called and authorized the pt to stay.
--- NOTE | 2021-05-17 13:06 | NUR ---
TERA JETT TALKED TO DR. BURK REGARDING ADMITTING THE PT.
--- NOTE | 2021-05-17 15:30 | NUR ---
RECEIVED PATIENT FROM ED 45 YEARS OLD MALE BY CASSIDY TO ROOM 301 BED A WITH DX OF SEVERE SEPSIS PLACED INTO BED FIXED AND MADE COMFORTABLE ON ROOM AIR WITH NO SHORTNESS OF BREATH ORIENTED TO ROOM AND FACILITY PROTOCOL AFEBRILE WILL CONTINUE TO OBSERVE.
--- NOTE | 2021-05-17 15:30 | NUR ---
PT TRANSFERED TO FLOOR IN STABLE CONDITION.
--- NOTE | 2021-05-17 15:50 | NUR ---
WHILE DOING THE ADMISSION 11/26 DONE PATIENT STATED WANTS TO LEAVE DOES NOT WANT TO STAY ASKED HIM WHY HE WANTS TO LEAVE STATED JUST WANTS TO GO HOME SO I CALLED DR BURK THAT PATIENT WANTED TO LEAVE AND HE STATED THAT PATIENT COULD GO AGAINST [facility].
--- NOTE | 2021-05-17 16:12 | NUR ---
PATIENT SIGNED THE AMA FORM AND WAS ESCORTED TO THE FRONT OF THE HOSPITAL STATED MUST GO BECAUSE HIS GIRL FRIEND IS NOT ABLE TO TAKE CARE OF HIS ANIMALS DR BURK NOTIFIED OD PATIENTS DECISION TO LEAVE AMA.
--- NOTE | 2021-05-17 16:15 | NUR ---
PATIENT ESCORTED TO THE FRONT OF THE BUILDING WITH ALL HIS PERSONAL BELONGINGS.
== END 2021-05-17 16:15 | disposition left against medical advice (07) | DRG 720 ==
LOC: ER 03:50 → TRANSITION 12:14 → TELE3 15:51
PROVIDERS: ADMIT Internal Medicine; ATTEND Internal Medicine
DX: A41.9 Sepsis, unspecified organism (principal); F10.10 Alcohol abuse, uncomplicated; R10.9 Unspecified abdominal pain; R65.20 Severe sepsis without septic shock; Y90.8 Blood alcohol level of 240 mg/100 ml or more; G40.909 Epilepsy, unspecified, not intractable, without status epilepticus; Z59.0 Homelessness; F43.10 Post-traumatic stress disorder, unspecified; Z20.822 Contact with and (suspected) exposure to COVID-19
CPT/HCPCS: 36415; 71045; 83605; 83690; 85025; 85730; 87040; C9113; G0378; G0480; J0696; J1200; J1630; J2270; J2930; J3360; J3370; J7030; J7040; J7050; Q9967

== ENCOUNTER 2021-05-31 12:56 | Emergency (ER) | payer MEDICAID ==
[~2021-05-31] VITALS: Ht 170.2 cm; Wt 65.8 kg
[2021-05-31] MEDS ORDERED: EPINEPHRINE 1 MG/1 ML AMP ONE ×2 (13:04→13:20)
[2021-05-31] MEDS: EPINEPHRINE 1 MG/1 ML AMP IM ONE (13:11)
--- NOTE | 2021-05-31 13:15 | NUR ---
PT IS IN ROOM #1A. DR EVANS EVALUATED THE PT.
[2021-05-31] MEDS ORDERED: diphenhydrAMINE 25 MG CAP PO ONE (13:22)
[2021-05-31 13:29] LABS: HEMATOCRIT 34.1 % (36.7-47.1); MEAN CORPUSCULAR HEMOGLOBIN 24.9 uug (23.8-33.4); MEAN CORPUSCULAR VOLUME 78.9 fL (73.0-96.2); PLATELET COUNT (AUTO) 253 K/uL (152-348); POTASSIUM 3.4 mmol/L (3.5-5.1)
[2021-05-31 13:34] LABS: BILIRUBIN,DIRECT 0.1 mg/dL (0.0-0.2); BILIRUBIN,TOTAL 0.2 mg/dL (0.2-1.0)
[2021-05-31] MEDS: diphenhydrAMINE 50 MG CAPSULE PO ONE (13:41)
[2021-05-31] MEDS: SILVER SULFADIAZINE 1% CREAM 50 GM TP ONE (14:10)
[2021-05-31] MEDS ORDERED: SILVER SULFADIAZINE 1% CREAM 25 GM TUBE TP ONE (14:17)
--- NOTE | 2021-05-31 17:23 | NUR ---
PT WAS D/C'd TO HOME. D/C INSTRUCTIONS GIVEN TO THE PT BY DR EVANS. GAIT IS STABLE. NO S/S OF ACUTE DISTRESS AT THIS TIME.
[2021-05-31 17:24] VITALS: BP 139/85
== END 2021-05-31 17:25 | disposition home or self-care (01) ==
LOC: ER 12:56
DX: F10.229 Alcohol dependence with intoxication, unspecified (principal); Y90.8 Blood alcohol level of 240 mg/100 ml or more; Z76.5 Malingerer [conscious simulation]; R10.9 Unspecified abdominal pain; Z82.49 Family history of ischemic heart disease and other diseases of the circulatory system; R00.0 Tachycardia, unspecified; I45.10 Unspecified right bundle-branch block; D64.9 Anemia, unspecified; Z59.0 Homelessness; Z88.6 Allergy status to analgesic agent; Z91.010 Allergy to peanuts; G40.909 Epilepsy, unspecified, not intractable, without status epilepticus; F43.10 Post-traumatic stress disorder, unspecified
CPT/HCPCS: 36415; 71045; 80048; 80076; 80320; 83690; 84484; 85025; 93005; 96372; 99285; J0171; Q0163; 70030-TC; G0480

== ENCOUNTER 2021-07-20 05:38 | Emergency (ER) | payer MEDICAID, OTHER ==
[~2021-07-20] VITALS: Ht 167.6 cm; Wt 59.0 kg
--- NOTE | 2021-07-20 05:48 | NUR ---
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 ACCOMPANIED BY N/V/D. A/O X3, NO SOB OR LABORED BREATHING, AFEBRILE. DENIES CP/PRESSURE. CLEAR SPEECH, COMPLETE SENTENCES.
--- NOTE | 2021-07-20 05:59 | NUR ---
DR. FRAGOSO AT BEDSIDE, MSE IN PROGRESS.
[2021-07-20] MEDS ORDERED: IV NORMAL SALINE 100 ML BAG IV ONE (06:15)
[2021-07-20] MEDS ORDERED: HALOPERIDOL LACTATE 5 MG/1 ML VIAL IV ONE (06:15)
[2021-07-20] MEDS ORDERED: HALOPERIDOL LACTATE 5 MG/1 ML VIAL ONE (06:30)
[2021-07-20] MEDS ORDERED: LEVE500T9 PO (06:58)
[2021-07-20] MEDS ORDERED: CLON2TAB PO (06:58)
[2021-07-20] MEDS ORDERED: diphenhydrAMINE 50 MG/1 ML VIAL IV ONE (07:00)
--- NOTE | 2021-07-20 07:03 | NUR ---
GAVE REPORT TO DESTINY GARCIA.
[2021-07-20] MEDS ORDERED: diphenhydrAMINE 50 MG/1 ML VIAL ONE (07:07)
--- NOTE | 2021-07-20 07:40 | NUR ---
RICCARDO AT BEDSIDE FOR US OF SCROTUM.
--- NOTE | 2021-07-20 08:01 | NUR ---
PT RESTING, NO SIGN OF DISTRESS, AROUSABLE.
[2021-07-20 08:03] LABS: HEMATOCRIT 29.4 % (36.7-47.1); MEAN CORPUSCULAR HEMOGLOBIN 25.1 uug (23.8-33.4); MEAN CORPUSCULAR VOLUME 78.5 fL (73.0-96.2); PLATELET COUNT (AUTO) 170 K/uL (152-348)
--- NOTE | 2021-07-20 08:04 | NUR ---
The scrotal ultrasound was ordered at 6:04. The tech was called at 6:45.
[2021-07-20 08:12] LABS: CREATININE 0.8 mg/dL (0.6-1.3); POTASSIUM 3.9 mmol/L (3.5-5.1)
[2021-07-20 08:17] LABS: BILIRUBIN,TOTAL 0.1 mg/dL (0.2-1.0); TOTAL PROTEIN, SERUM 6.1 g/dL (6.4-8.2)
--- NOTE | 2021-07-20 08:47 | NUR ---
Patient given written and verbal discharge instructions. Patient verbalizes understanding of instructions. Patient is ambulatory with steady gait. Patient given list of available shelters in surrounding area. PT IS APPRECIATIVE OF THE CARE RECIEVED HERE.
[2021-07-20 08:48] VITALS: BP 119/76
== END 2021-07-20 09:00 | disposition home or self-care (01) ==
LOC: ER 05:43
DX: R10.9 Unspecified abdominal pain (principal); G89.29 Other chronic pain; G40.909 Epilepsy, unspecified, not intractable, without status epilepticus; Z59.00 Homelessness unspecified; Z79.899 Other long term (current) drug therapy; Z88.6 Allergy status to analgesic agent; Z91.010 Allergy to peanuts; F10.20 Alcohol dependence, uncomplicated; Z86.711 Personal history of pulmonary embolism; F43.10 Post-traumatic stress disorder, unspecified
CPT/HCPCS: 36415; 74176; 76870; 80053; 83605; 83690; 85025; 93005; 96372 ×2; 99285; J1200; J1630; A4663; J7030

== ENCOUNTER 2021-08-23 18:46 | Emergency (ER) | payer MEDICAID, OTHER ==
[~2021-08-23] VITALS: Ht 167.6 cm; Wt 59.0 kg
[~2021-08-23 18:46] MED LIST changes: -CHLO25CA22 PO; +CLON2TAB PO; +LEVE500T9 PO; -ONDA4TAB5 PO
[2021-08-23] MEDS ORDERED: HYDROMORPHONE 1 MG/1 ML DISP.SYRIN IV ONE (19:00)
[2021-08-23] MEDS ORDERED: ONDANSETRON 4 MG/2 ML VIAL IV ONE (19:00)
[2021-08-23] MEDS ORDERED: IV NORMAL SALINE 1000 ML BAG IV ONE (19:00)
--- NOTE | 2021-08-23 19:14 | NUR ---
PT TAKEN TO CT.
--- NOTE | 2021-08-23 19:30 | NUR ---
PT RETURNED FROM CT, STABLE CONDITION.
--- NOTE | 2021-08-23 19:37 | NUR ---
LAB AT BEDSIDE.
[2021-08-23 19:49] LABS: HEMATOCRIT 34.1 % (36.7-47.1); MEAN CORPUSCULAR HEMOGLOBIN 23.1 uug (23.8-33.4); MEAN CORPUSCULAR VOLUME 72.5 fL (73.0-96.2); PLATELET COUNT (AUTO) 265 K/uL (152-348)
[2021-08-23 19:57] LABS: CREATININE 1.1 mg/dL (0.6-1.3)
[2021-08-23 20:02] LABS: BILIRUBIN,DIRECT 0.1 mg/dL (0.0-0.2); BILIRUBIN,TOTAL 0.3 mg/dL (0.2-1.0); TOTAL PROTEIN, SERUM 7.8 g/dL (6.4-8.2)
[2021-08-23] MEDS ORDERED: HYDROMORPHONE 1 MG/1 ML DISP.SYRIN IM ONE (20:15)
[2021-08-23] MEDS ORDERED: ONDANSETRON ODT 4 MG TAB.RAPDIS SL ONE (20:15)
[2021-08-23 20:19] LABS: EOSINOPHILS % (MANUAL) 3 % (0-8); LYMPHOCYTES % (MANUAL) 25 % (20-40); MONOCYTES % (MANUAL) 6 % (2-10); NEUTROPHILS % (MANUAL) 66 % (42-75)
[2021-08-23] MEDS ORDERED: ONDANSETRON ODT 4 MG TAB.RAPDIS ONE (20:19)
[2021-08-23] MEDS ORDERED: HYDROMORPHONE 1 MG/1 ML DISP.SYRIN ONE (20:19)
[2021-08-23] MEDS ORDERED: HYDR-4209 PO (20:43)
[2021-08-23] MEDS ORDERED: DIPH25TA25 PO (20:43)
[2021-08-23] MEDS ORDERED: diphenhydrAMINE 50 MG CAPSULE PO ONE (20:45)
[2021-08-23] MEDS ORDERED: diphenhydrAMINE 25 MG CAP PO ONE (20:54)
--- NOTE | 2021-08-23 21:01 | NUR ---
Patient given written and verbal discharge instructions. Patient verbalizes understanding of instructions. Patient is ambulatory with steady gait. Refuses offer of care home placement. Patient given list of available shelters in surrounding area. Steady gait, provided pt with meal pack.
[2021-08-23 21:32] VITALS: BP 128/84
== END 2021-08-23 21:33 | disposition home or self-care (01) ==
LOC: ER 18:47
DX: G89.29 Other chronic pain (principal); R10.84 Generalized abdominal pain; D50.9 Iron deficiency anemia, unspecified; F17.210 Nicotine dependence, cigarettes, uncomplicated; F10.229 Alcohol dependence with intoxication, unspecified; Z87.19 Personal history of other diseases of the digestive system; G40.909 Epilepsy, unspecified, not intractable, without status epilepticus; Z76.5 Malingerer [conscious simulation]; Z86.711 Personal history of pulmonary embolism; Z79.899 Other long term (current) drug therapy; Z59.01 Sheltered homelessness; Z88.6 Allergy status to analgesic agent; Z91.010 Allergy to peanuts; R94.31 Abnormal electrocardiogram [ECG] [EKG]; Z90.49 Acquired absence of other specified parts of digestive tract
CPT/HCPCS: 36415; 74176; 80048; 80076; 83690; 84484; 85007; 85025; 93005; 96372; 99285; J1170; Q0163; 70030-TC; A4663; J7030; Q0162

== ENCOUNTER 2021-09-14 10:03 | Emergency (ER) | payer MEDICAID ==
[~2021-09-14] VITALS: Ht 167.6 cm; Wt 63.5 kg
[~2021-09-14 10:03] MED LIST changes: +DIPH25TA25 PO; +HYDR-4209 PO
--- NOTE | 2021-09-14 10:14 | NUR ---
PT IS IN ROOM #2B. DR STRATTON EVALUATED THE PT.
--- NOTE | 2021-09-14 10:40 | NUR ---
PT WAS D/C'd TO HOME. VERBAL D/C INSTRUCTIONS GIVEN TO THE PT BY DR STRATTON.
[2021-09-14 10:41] VITALS: BP 135/78
== END 2021-09-14 10:41 | disposition home or self-care (01) ==
LOC: ER 10:03
DX: R10.13 Epigastric pain (principal); F10.229 Alcohol dependence with intoxication, unspecified; Z88.6 Allergy status to analgesic agent; Z91.010 Allergy to peanuts; Z86.711 Personal history of pulmonary embolism; G40.909 Epilepsy, unspecified, not intractable, without status epilepticus; Z79.899 Other long term (current) drug therapy; G89.29 Other chronic pain; R10.9 Unspecified abdominal pain
CPT/HCPCS: A4663

== ENCOUNTER 2021-10-31 13:42 | Emergency (ER) | payer MEDICAID ==
[~2021-10-31] VITALS: Ht 167.6 cm; Wt 61.2 kg
--- NOTE | 2021-10-31 14:39 | NUR ---
PT IS IN ROOM #2B. DR EVANS EVALUATED THE PT.
[2021-10-31] MEDS ORDERED: HYDROCODONE/APAP 5-325MG TABLET PO ONE (14:45)
[2021-10-31 15:07] LABS: *BILIRUBIN,URIN NEGATIVE (NEGATIVE); *BLOOD, URINE NEGATIVE (NEGATIVE); *CLARITY,URINE CLEAR (CLEAR); *COLOR,URINE YELLOW (YELLOW); *KETONES,URINE NEGATIVE (NEGATIVE); *UROBILINOGEN,URINE 0.2 E.U./dl (NORMAL); LEUKOCYTE ESTERASE ,URINE NEGATIVE (NEGATIVE); NITRITE, URINE NEGATIVE (NEGATIVE); UGLUCOSE NEGATIVE (NEGATIVE)
[2021-10-31] MEDS ORDERED: HYDROCODONE/APAP 5-325MG TABLET ONE (15:23)
[2021-10-31 15:59] LABS: CREATININE 0.8 mg/dL (0.6-1.3); POTASSIUM 3.9 mmol/L (3.5-5.1)
[2021-10-31] MEDS ORDERED: diphenhydrAMINE 25 MG CAP PO ONE ×2 (16:00)
[2021-10-31 16:01] LABS: HEMATOCRIT 26.4 % (36.7-47.1); MEAN CORPUSCULAR HEMOGLOBIN 21.8 uug (23.8-33.4); MEAN CORPUSCULAR VOLUME 69.7 fL (73.0-96.2); PLATELET COUNT (AUTO) 393 K/uL (152-348)
[2021-10-31 16:05] LABS: BILIRUBIN,DIRECT 0.1 mg/dL (0.0-0.2); BILIRUBIN,TOTAL 0.1 mg/dL (0.2-1.0); TOTAL PROTEIN, SERUM 7.9 g/dL (6.4-8.2)
[2021-10-31] MEDS ORDERED: OMEP40CA21 PO (16:21)
--- NOTE | 2021-10-31 16:36 | NUR ---
PT WAS D/C'd TO HOME AFTER DR EVANS EVALUATION. D/C INSTRUCTIONS GIVEN TO THE PT BY DR EVANS.
[2021-10-31 16:37] VITALS: BP 132/89
== END 2021-10-31 16:40 | disposition home or self-care (01) ==
LOC: ER 13:44
DX: R10.30 Lower abdominal pain, unspecified (principal); N50.82 Scrotal pain; I86.1 Scrotal varices; Z90.49 Acquired absence of other specified parts of digestive tract; K59.00 Constipation, unspecified; I45.10 Unspecified right bundle-branch block; R94.31 Abnormal electrocardiogram [ECG] [EKG]; D64.9 Anemia, unspecified; D75.839 Thrombocytosis, unspecified; Z88.6 Allergy status to analgesic agent; Z91.010 Allergy to peanuts; G40.909 Epilepsy, unspecified, not intractable, without status epilepticus; Z86.711 Personal history of pulmonary embolism
CPT/HCPCS: 36415; 74176; 76870; 80048; 80076; 81003; 83605; 83690; 84484; 85025; 93005; 99285; Q0163; 70030-TC; A4663

== ENCOUNTER 2021-12-13 19:07 | Emergency (ER) | payer MEDICAID ==
[~2021-12-13] VITALS: Ht 170.2 cm; Wt 63.5 kg
[~2021-12-13 19:07] MED LIST changes: +OMEP40CA21 PO
--- NOTE | 2021-12-13 19:16 | NUR ---
pt in room 2b for c/o c/p.
[2021-12-13] MEDS ORDERED: HYDROMORPHONE 1 MG/1 ML DISP.SYRIN IV ONE (19:45)
[2021-12-13] MEDS ORDERED: ONDANSETRON 4 MG/2 ML VIAL IV ONE (19:45)
[2021-12-13] MEDS ORDERED: IV NORMAL SALINE 1000 ML BAG IV ONE (19:45)
--- NOTE | 2021-12-13 20:44 | NUR ---
iv started by Rubio DIXON to pt's right upper leg. pt is a very difficult iv start poor venous acces.
[2021-12-13] MEDS ORDERED: ONDANSETRON 4 MG/2 ML VIAL ONE (20:47)
[2021-12-13] MEDS ORDERED: HYDROMORPHONE 2 MG/1 ML DISP.SYRIN ONE (20:47)
--- NOTE | 2021-12-13 21:09 | NUR ---
staff continues trying to obtain blood sample, pt is a very difficult blood draw. Dr. Villanueva made aware.
[2021-12-13] MEDS ORDERED: diphenhydrAMINE 50 MG/1 ML VIAL ONE (21:28)
[2021-12-13] MEDS ORDERED: diphenhydrAMINE 50 MG/1 ML VIAL IV ONE (21:30)
--- NOTE | 2021-12-13 22:11 | NUR ---
second dry kiln feeder unable to draw blood. Dr. Villanueva made aware. he states he will do a femoral stick.
[2021-12-13] MEDS ORDERED: THIAMINE HCL 100 MG TABLET PO ONE (22:30)
--- NOTE | 2021-12-13 22:34 | NUR ---
femoral blood draw performed by dr. Villanueva, blood sent to lab.
[2021-12-13 22:41] LABS: HEMATOCRIT 27.4 % (36.7-47.1); MEAN CORPUSCULAR VOLUME 70.2 fL (73.0-96.2); PLATELET COUNT (AUTO) 185 K/uL (152-348)
[2021-12-13 22:47] LABS: CARBON DIOXIDE 27 mmol/L (21-32); CHLORIDE 106 mmol/L (98-107); CREATININE 0.9 mg/dL (0.6-1.3); GLUCOSE 94 mg/dL (74-106); POTASSIUM 4.1 mmol/L (3.5-5.1); UREA NITROGEN, BLOOD 4 mg/dL (7-18)
[2021-12-13 22:56] LABS: ALANINE AMINOTRANSFERASE 31 U/L (16-63); ALKALINE PHOSPHATASE 59 U/L (50-136); ASPARTATE AMINOTRANSFERASE 43 U/L (15-37); BILIRUBIN,DIRECT 0.1 mg/dL (0.0-0.2); BILIRUBIN,TOTAL 0.2 mg/dL (0.2-1.0)
--- NOTE | 2021-12-14 00:45 | NUR ---
Iron hernandez in ED - 12/14/21 at 0122 by OVI pt yells and is unable to communicate. pt flexes extremities when care provided making care difficult to provide.
[2021-12-14] MEDS ORDERED: THIAMINE HCL 100 MG TABLET ONE (01:01)
[2021-12-14] MEDS ORDERED: FERR325T23 PO (03:13)
--- NOTE | 2021-12-14 03:35 | NUR ---
IV removed. Catheter intact and site benign. Pressure and 4x4 gauze applied to site. No bleeding noted.
[2021-12-14 03:50] VITALS: BP 147/89
--- NOTE | 2021-12-14 03:50 | NUR ---
Patient discharged to home in stable condition. Written and verbal after care instructions given. Patient verbalizes understanding of instructions. Stressed follow up or return to ER for worsening s/s.
== END 2021-12-14 03:51 | disposition home or self-care (01) ==
LOC: ER 19:10
DX: F10.229 Alcohol dependence with intoxication, unspecified (principal); Y90.8 Blood alcohol level of 240 mg/100 ml or more; Z76.5 Malingerer [conscious simulation]; D50.9 Iron deficiency anemia, unspecified; R07.9 Chest pain, unspecified; Z90.49 Acquired absence of other specified parts of digestive tract; G40.909 Epilepsy, unspecified, not intractable, without status epilepticus; Z86.711 Personal history of pulmonary embolism; Z59.00 Homelessness unspecified; Z88.6 Allergy status to analgesic agent; Z91.010 Allergy to peanuts; F17.200 Nicotine dependence, unspecified, uncomplicated; Z79.899 Other long term (current) drug therapy; R03.0 Elevated blood-pressure reading, without diagnosis of hypertension
CPT/HCPCS: 36415; 71045; 80048; 80076; 80320; 83605; 84484; 85025; 85379; 85730; 93005; 96361; 96374; 96375; 99285; J1170; J1200; J2405; A4663; G0480; J7030

== ENCOUNTER 2022-02-10 15:25 | Emergency (ER) | payer MEDICAID ==
[~2022-02-10] VITALS: Ht 170.2 cm; Wt 63.5 kg
[~2022-02-10 15:25] MED LIST changes: +FERR325T23 PO
--- NOTE | 2022-02-10 15:35 | NUR ---
MD at bedside, medical screening exam in progress.
[2022-02-10] MEDS ORDERED: FAMOTIDINE. 20 MG/2 ML VIAL IV ONE ×3 (15:45→16:17)
[2022-02-10] MEDS ORDERED: methylPREDNISolone SOD SUCC 125 MG/2 ML VIAL IV ONE (15:45)
[2022-02-10] MEDS ORDERED: IV NORMAL SALINE 500 ML BAG IV ONE (15:45)
[2022-02-10] MEDS ORDERED: EPINEPHRINE 1 MG/1 ML AMP SQ ONE (15:45)
[2022-02-10] MEDS ORDERED: diphenhydrAMINE 50 MG CAPSULE PO ONE (16:00)
[2022-02-10] MEDS ORDERED: methylPREDNISolone SOD SUCC 125 MG/2 ML VIAL ONE (16:15)
[2022-02-10] MEDS ORDERED: diphenhydrAMINE 50 MG CAPSULE ONE (16:15)
[2022-02-10] MEDS ORDERED: EPINEPHRINE 1 MG/1 ML AMP ONE (16:15)
[2022-02-10 16:30] LABS: CARBON DIOXIDE 28 mmol/L (21-32); CHLORIDE 105 mmol/L (98-107); CREATININE 0.9 mg/dL (0.6-1.3); GLUCOSE 107 mg/dL (74-106); UREA NITROGEN, BLOOD 6 mg/dL (7-18)
[2022-02-10 16:36] LABS: HEMATOCRIT 27.8 % (36.7-47.1); MEAN CORPUSCULAR VOLUME 68.3 fL (73.0-96.2); PLATELET COUNT (AUTO) 216 K/uL (152-348)
[2022-02-10 16:38] LABS: ALANINE AMINOTRANSFERASE 63 U/L (16-63); ALKALINE PHOSPHATASE 68 U/L (50-136); ASPARTATE AMINOTRANSFERASE 71 U/L (15-37); BILIRUBIN,DIRECT 0.1 mg/dL (0.0-0.2); BILIRUBIN,TOTAL 0.3 mg/dL (0.2-1.0); TOTAL PROTEIN, SERUM 7.5 g/dL (6.4-8.2)
[2022-02-10] MEDS ORDERED: diphenhydrAMINE 50 MG/1 ML VIAL IV ONE (17:00)
[2022-02-10] MEDS ORDERED: diphenhydrAMINE 50 MG/1 ML VIAL ONE (17:06)
[2022-02-10] MEDS ORDERED: EPIN0.3P3 IM (18:13)
[2022-02-10] MEDS ORDERED: DIPH25CA83 PO (20:57)
[2022-02-10] MEDS ORDERED: PRED20TA PO (20:57)
--- NOTE | 2022-02-10 21:41 | NUR ---
Patient discharged to home in stable condition. Written and verbal after care instructions given. Patient verbalizes understanding of instructions. Stressed follow up or return to ER for worsening s/s. pt ambulated with steady gait. denies pain. no sob. no chest pain. AOx4
[2022-02-10 21:42] VITALS: BP 123/85
== END 2022-02-10 21:44 | disposition home or self-care (01) ==
LOC: ER 15:29
DX: T78.40XA Allergy, unspecified, initial encounter (principal); M79.89 Other specified soft tissue disorders; X58.XXXA Exposure to other specified factors, initial encounter; F10.229 Alcohol dependence with intoxication, unspecified; Y90.8 Blood alcohol level of 240 mg/100 ml or more; R00.0 Tachycardia, unspecified; D50.9 Iron deficiency anemia, unspecified; Z91.010 Allergy to peanuts
CPT/HCPCS: 36415; 71045; 80048; 80076; 80320; 84484; 85025; 93005; 96361; 96372; 96374; 96375; 99285; J0171; J1200; J2930; J3490; J7040; Q0163; A4663; G0480